=== PATIENT | female | born 1960 | race Caucasian/White ===

== ENCOUNTER 2018-02-12 01:41 | Emergency (ER) | payer SELFPAY ==
[~2018-02-12] VITALS: Ht 154.9 cm; Wt 74.8 kg
[2018-02-12 01:57] VITALS: Ht 154.9 cm; Wt 74.8 kg
[2018-02-12 03:52] VITALS: BP 129/73
== END 2018-02-12 03:52 | disposition other institution (70) ==
LOC: ED 01:41
DX: S46.912A Strain of unspecified muscle, fascia and tendon at shoulder and upper arm level, left arm, initial encounter (principal); S46.911A Strain of unspecified muscle, fascia and tendon at shoulder and upper arm level, right arm, initial encounter; V43.52XA Car driver injured in collision with other type car in traffic accident, initial encounter; Y93.I9 Activity, other involving external motion; Y92.89 Other specified places as the place of occurrence of the external cause; Y99.8 Other external cause status

== ENCOUNTER 2018-02-12 01:41 | Emergency (ER) | payer OTHER | END 2018-02-12 03:52 | disposition other institution (70) | LOC: ED 01:41 | DX: Z02.89 Encounter for other administrative examinations (principal) ==

== ENCOUNTER 2020-01-07 18:57 | Emergency (ER) | payer OTHER ==
[~2020-01-07] VITALS: Ht 157.5 cm; Wt 77.1 kg
[2020-01-07 19:03] VITALS: Ht 157.5 cm; Wt 77.1 kg
[2020-01-07 21:37] VITALS: BP 140/72
== END 2020-01-07 21:37 | disposition home or self-care (01) ==
LOC: ED 18:57
DX: U07.1 COVID-19 (principal); Z98.890 Other specified postprocedural states
CPT/HCPCS: U0003-CS